=== PATIENT | female | born 1950 | race African-American/Black ===

== ENCOUNTER 2023-01-13 07:08 | Emergency (ER) | payer MEDICARE, OTHER ==
[~2023-01-13] VITALS: Ht 165.1 cm; Wt 83.9 kg
--- NOTE | 2023-01-13 07:15 | NUR ---
RECEIVED PT 72 YRS MALE FROM [facility] BY [facility] FOR ABDOMINALE PAIN AWAKE AND ALERT
[2023-01-13] MEDS ORDERED: ONDANSETRON HCL/PF 4 MG/2 ML VIAL IVP ONE (07:30)
--- NOTE | 2023-01-13 07:45 | NUR ---
.SEEN BY DR. CLAROS
--- NOTE | 2023-01-13 07:50 | NUR ---
INSERTED ANGCATHETER G 20 ON LT WRIST BLOOD DROW AND SENT TO LAB [facility]A SENT TO LAB
[2023-01-13] MEDS ORDERED: ONDANSETRON HCL/PF 4 MG/2 ML VIAL ONE (07:52)
[2023-01-13] MEDS ORDERED: ACETAMINOPHEN 325 MG TABLET ONE (07:54)
[2023-01-13 07:59] LABS: BILIRUBIN,URINE 2+ (NEGATIVE); COLOR,URINE YELLOW (YELLOW); LEUKOCYTE ESTERASE ,URINE 2+ (NEGATIVE); NITRITE, URINE NEGATIVE (NEGATIVE); PROTEIN,URINE 2+ mg/dl (NEGATIVE); UGLUCOSE NEGATIVE (NEGATIVE); UROBILINOGEN,URINE >=8.0 EU/dL (0.2)
[2023-01-13] MEDS ORDERED: IV NS 0.9% 1,000 ML IV ONE (08:00)
[2023-01-13] MEDS ORDERED: ACETAMINOPHEN 325 MG TABLET PO ONE (08:00)
[2023-01-13 08:02] LABS: PH,URINE >9.0 (5.0-8.0)
[2023-01-13 08:05] LABS: BASOPHILS % (AUTO) 0.5 % (0.0-2.0); EOSINOPHILS % (AUTO) 0.2 % (0.0-6.0); HEMATOCRIT 43 % (33-45); HEMOGLOBIN 13.5 g/dL (11.5-14.8); LYMPHOCYTES % (AUTO) 14.2 % (20.0-44.0); MEAN CORPUSCULAR HGB CONC 31 g/dl (31.0-36.0); MEAN CORPUSCULAR VOLUME 76 fL (82-100); MONOCYTES # (AUTO) 0.6 K/uL (0.1-1.30); MONOCYTES % (AUTO) 8.3 % (2.0-12.0); NEUTROPHILS # (AUTO) 5.7 K/uL (1.8-8.9); NEUTROPHILS % (AUTO) 76.8 % (43.0-81.0); PLATELET COUNT (AUTO) 273 K/uL (150-450); RED BLOOD CELL COUNT(AUTO) 5.69 MIL/uL (4.0-5.2); WHITE BLOOD COUNT (AUTO) 7.3 K/uL (4.3-11.0)
[2023-01-13] MEDS ORDERED: CEFTRIAXONE 1GM BAG (ER ONLY) 1 GM/50 ML PIGGYBACK IV ONE (08:30)
[2023-01-13] MEDS ORDERED: CEFTRIAXONE 1GM BAG (ER ONLY) 50 ML IV ONE (08:38)
[2023-01-13 08:41] LABS: BACTERIA,URINE Many /HPF (None Seen); SQUAMOUS EPITHELIAL CELL,UR Few /HPF (None Seen); URINE AMORPHOUS URATE Many /HPF (None Seen)
--- NOTE | 2023-01-13 08:47 | NUR ---
TO CT SCAN OF ABDOMIN
[2023-01-13] MEDS ORDERED: IBUP-1953 PO (09:21)
[2023-01-13] MEDS ORDERED: MAG355OR18 PO (09:21)
[2023-01-13] MEDS ORDERED: FAMO20TA8 PO (09:21)
[2023-01-13] MEDS ORDERED: NITR100C PO (09:23)
[2023-01-13 09:57] LABS: ALANINE AMINOTRANSFERASE 19 U/L (12-78); ALBUMIN 3.5 g/dL (3.4-5.0); ALKALINE PHOSPHATASE 71 U/L (46-116); ASPARTATE AMINOTRANSFERASE 23 U/L (15-37); BILIRUBIN,DIRECT 0.1 mg/dL (0.0-0.2); BILIRUBIN,TOTAL 0.6 mg/dL (0.2-1.0); CALCIUM, SERUM 9.1 mg/dL (8.5-10.1); LIPASE 53 U/L (73-393); TOTAL PROTEIN, SERUM 8.2 g/dL (6.4-8.2); UREA NITROGEN, BLOOD 19 mg/dL (7-18)
[2023-01-13 09:59] LABS: CARBON DIOXIDE 15 mmol/L (21-32); CHLORIDE 107 mmol/L (98-107); GLUCOSE 111 mg/dL (74-106); POTASSIUM 4.2 mmol/L (3.5-5.1); SODIUM SERUM 139 mmol/L (136-145)
--- NOTE | 2023-01-13 10:40 | NUR ---
ROCEPHIN 1 GM IVPB INFUSED AND INFUSED AND COMPLETED
--- NOTE | 2023-01-13 10:50 | NUR ---
iv line removed. Catheter intact and site benign. Pressure and 4x4 applied to site. No bleeding noted.
--- NOTE | 2023-01-13 11:11 | NUR ---
CALLED [facility] FOR TRANSPORT ETA 45 MINS PER ALEJANDRA.
--- NOTE | 2023-01-13 11:52 | NUR ---
Patient discharged to rehab in stable condition. Written and after care instructions given. Patient and emt verbalizes understanding of instruction.back to rehab center
[2023-01-13 11:57] VITALS: BP 111/56
== END 2023-01-13 12:01 | disposition home or self-care (01) ==
LOC: ER 07:13
DX: K52.9 Noninfective gastroenteritis and colitis, unspecified (principal); N39.0 Urinary tract infection, site not specified; G30.9 Alzheimer's disease, unspecified; F02.80 Dementia in other diseases classified elsewhere, unspecified severity, without behavioral disturbance, psychotic disturbance, mood disturbance, and anxiety; E11.9 Type 2 diabetes mellitus without complications; Z79.899 Other long term (current) drug therapy; Z88.0 Allergy status to penicillin
CPT/HCPCS: 99285; 74176; 96365; 96361; 96375; 85025; 80048; 87086; 83605; 83690; 80076; 81001; 36415; J2405; J7030; J0696